=== PATIENT | female | born 1995 | race Caucasian/White ===

== ENCOUNTER 2021-04-20 23:31 | Emergency (ER) | payer OTHER ==
[~2021-04-20] VITALS: Ht 160 cm; Wt 48.6 kg
[2021-04-21] MEDS ORDERED: NS 1,000 ML IV ONE (02:35)
[2021-04-21 03:12] LABS: BASO % 0.6 % (0.0-1.0); EOS # 0.1 10^3/uL (0.0-0.5); EOS % 1.5 % (0.0-3.0); HEMOGLOBIN 12.3 g/dl (12.0-15.5); LYMPH # 3.4 10^3/uL (1.5-5.0); LYMPH % 51.9 % (24.0-44.0); MEAN CORPUSCULAR HEMOGLOBIN 29.9 pg (27.0-33.0); MEAN CORPUSCULAR HGB CONC 34.2 g/dl (32.0-36.5); MEAN CORPUSCULAR VOLUME 87.4 fl (80.0-96.0); MONO # 0.4 10^3/uL (0.0-0.8); MONO % 6.7 % (2.0-8.0); NEUTROPHILS # 2.6 10^3/uL (1.5-8.5); NEUTROPHILS % 39.1 % (36.0-66.0); PLATELET COUNT, AUTOMATED 252 10^3/uL (150-450); RED BLOOD COUNT 4.12 10^6/uL (4.00-5.40); WHITE BLOOD COUNT 6.5 10^3/uL (4.0-10.0)
[2021-04-21] MEDS ORDERED: ONDANSETRON 4MG/2ML VIAL IV ONE (03:35)
[2021-04-21 03:40] LABS: ALBUMIN 3.8 GM/DL (3.2-5.2); ALT/SGPT 15 U/L (12-78); BILIRUBIN,DIRECT < 0.1 MG/DL (0.0-0.2); BILIRUBIN,TOTAL 0.3 MG/DL (0.2-1.0); LIPASE 104 U/L (73-393); TOTAL PROTEIN 6.6 GM/DL (6.4-8.2)
[2021-04-21 04:24] LABS: APPEARANCE, URINE CLOUDY (CLEAR); BACTERIA, URINE AUTO 2+ (NEGATIVE); BILIRUBIN, URINE AUTO NEGATIVE (NEGATIVE); BLOOD, URINE BLOOD NEGATIVE (NEGATIVE); COLOR, URINE YELLOW (YELLOW); GLUCOSE, URINE (UA) AUTO NEGATIVE (NEGATIVE); KETONE, URINE AUTO TRACE mg/dL (NEGATIVE); LEUKOCYTE ESTERASE, URINE AUTO TRACE (NEGATIVE); MUCUS, URINE MODERATE (NEGATIVE); NITRITE, URINE AUTO POSITIVE (NEGATIVE); PROTEIN, URINE AUTO NEGATIVE (NEGATIVE); RBC, URINE AUTO 1 /HPF (0-3); SPECIFIC GRAVITY URINE AUTO 1.017 (1.002-1.035); SQUAMOUS EPITHELIAL CELL UR AU 6 /HPF (0-6); UROBILINOGEN, URINE AUTO 0.2 mg/dL (0.0-2.0); WBC, URINE AUTO 13 /HPF (0-3)
[2021-04-21 05:47] LABS: GC DNA AMPLIFICATION NEGATIVE (NEGATIVE)
[2021-04-21 07:00] VITALS: BP 118/57
[2021-04-21] MEDS ORDERED: CEPH250T PO (07:00)
== END 2021-04-21 07:08 | disposition home or self-care (01) ==
LOC: M ED 23:31
DX: N39.0 Urinary tract infection, site not specified (principal); N39.41 Urge incontinence; R11.0 Nausea; R10.2 Pelvic and perineal pain; N83.201 Unspecified ovarian cyst, right side; R56.9 Unspecified convulsions; K21.9 Gastro-esophageal reflux disease without esophagitis
CPT/HCPCS: 76856; 80047; 80076; 81001; 83690; 84443; 84702; 85025; 87210; 87491; 87591; 93041; 93976; 96361; 96374; 99285; J2405

== ENCOUNTER 2021-08-08 17:46 | Emergency (ER) | payer OTHER ==
[~2021-08-08] VITALS: Ht 160 cm; Wt 47.8 kg
[~2021-08-08 17:46] MED LIST: CEPH250T PO
[2021-08-08 17:47] VITALS: BP 107/67
== END 2021-08-08 21:34 | disposition left against medical advice (07) ==
LOC: M ED 17:46
DX: Z53.21 Procedure and treatment not carried out due to patient leaving prior to being seen by health care provider (principal)